=== PATIENT | male | born 1980 | race African-American/Black ===

== ENCOUNTER 2017-04-10 19:09 | Emergency (ER) | payer OTHER ==
[~2017-04-10] VITALS: Ht 182.9 cm; Wt 97.7 kg
[2017-04-10 21:55] VITALS: BP 143/65
== END 2017-04-10 21:56 ==
LOC: EME 19:09
DX: S00.10XA Contusion of unspecified eyelid and periocular area, initial encounter (principal); Y35.813A Legal intervention involving manhandling, suspect injured, initial encounter; Y92.149 Unspecified place in prison as the place of occurrence of the external cause
CPT/HCPCS: 70450; 70486; 99281; 99284